=== PATIENT | female | born 1985 | race Caucasian/White ===

== ENCOUNTER → 2018-11-12 | Outpatient (CLI) | payer BC ==
--- NOTE | 2018-11-15 18:06 | PATHOLOGY ---
Note [facility] Accession Number: [id number] TESTS RESULT FLAG UNITS REF RANGE LAB Clinician Provided Cytology Information No. of containers..01 Other (Miscellaneous) Source: RT THYROID NODULE DIAGNOSIS: RT THYROID NODULE NEGATIVE FOR MALIGNANT CELLS. B[place]ESDA CATEGORY II. BENIGN. CLUSTERS OF FOLLICULAR EPITHELIAL CELLS AND ABUNDANT COLLOID, CONSISTENT ADENOMATOUS OR COLLOID NODULE. CASE IS ALSO EXAMINED BY DR. ROMAN. THIS INTERPRETATION INCLUDES EVALUATION OF A CELL BLOCK. Signed out by: Raad Good MD, Pathologist NPI- [id number] Performed by: Familia Rodas, Electronic Component [employer] ([facility]) Gross description: 01 30ML, CLEAR, COLORLESS /LCS FLAG LEGEND: L-Low Normal,H-High Normal,LL-Alert Low,HH-Alert High <-Panic Low,>-Panic High,A-Abnormal,AA-Critical Abnormal Performed at: 01 [facility] [address] [place] [address] Reginald Myers MD, 02 [facility] [address] [place] [address] Raad Good MD, Specimen Comment: A courtesy copy of this report has been sent to Specimen Comment: [phone], , . Specimen Comment: Report sent to ,DR MARSH / DR VILLARREAL Specimen Comment: A duplicate report has been generated due to demographic updates. Performed at: [address] [facility], [place], [place] [id number] MD Reginald Myers MD Phone: [phone]
--- NOTE | 2018-11-18 10:44 | RAD ---
Ultrasound-guided right thyroid biopsy, 11/12/2018: History: Thyroid nodule An outside thyroid ultrasound demonstrating a multinodular gland. We were asked to perform aspiration biopsy of the dominant nodule in the lower pole of the right lobe. This nodule has been shown to contain echogenic foci with comet tail type artifacts suggesting colloid material. Under local anesthesia, aseptic conditions and sonographic guidance a 25-gauge was passed into this nodule via an anteromedial approach. 5 separate aspirates were obtained from this nodule in this manner. Several of the aspirates were returned predominantly clear fluid. A colloid cyst is suspected. The materials were sent to pathology for evaluation with the pathology results pending. The patient tolerated the procedure well and left the department in good condition.
== END | disposition home or self-care (01) ==
LOC: EDUNIT# 13:30 → US 13:35
PROVIDERS: ATTEND Surgery
DX: E04.2 Nontoxic multinodular goiter (principal); Z88.5 Allergy status to narcotic agent
CPT/HCPCS: 10005; 60300; 76942; 88173; 88305